=== PATIENT | female | born 1990 | race Caucasian/White ===

== ENCOUNTER 2018-08-23 12:24 | Outpatient (CLI) | payer MEDICAID ==
[2018-08-23] MEDS ORDERED: BETAMET ACET/BETAMET NA INJ 6 MG/1 ML IM ONE (12:32)
[2018-08-23] MEDS ORDERED: BETAMET ACET/BETAMET NA INJ 6 MG/1 ML ONE (12:36)
== END 2018-08-23 12:41 | disposition home or self-care (01) ==
LOC: LC 12:24
PROVIDERS: ATTEND Obstetrics & Gynecology
DX: Z34.90 Encounter for supervision of normal pregnancy, unspecified, unspecified trimester (principal)
CPT/HCPCS: 96372; J0702

== ENCOUNTER 2018-09-05 10:02 | Outpatient (CLI) | payer MEDICAID ==
[2018-09-05 11:31] LABS: AMORPHOUS SEDIMENT,URINE TRACE /HPF; APPEARANCE,URINE CLOUDY; BILIRUBIN,URINE NEGATIVE (NEGATIVE); CALCIUM OXALATE CRYSTALS,URINE MODERATE /HPF; COLOR,URINE YELLOW; GLUCOSE, URINE NEGATIVE (NEGATIVE); KETONES,URINE NEGATIVE (NEGATIVE); LEUKOCYTE ESTERASE,URINE NEGATIVE (NEGATIVE); NITRITE,URINE NEGATIVE (NEGATIVE); PROTEIN,URINE NEGATIVE (NEGATIVE); URINE SPECIFIC GRAVITY 1.015; UROBILINOGEN,URINE NEGATIVE mg/dL (<2.0)
[2018-09-05 11:41] LABS: URINE AMPHETAMINES SCREEN NEGATIVE; URINE BARBITURATES SCREEN NEGATIVE; URINE BENZODIAZEPINES SCREEN NEGATIVE; URINE COCAINE SCREEN NEGATIVE; URINE MARIJUANA (THC) SCREEN NEGATIVE; URINE METHADONE SCREEN NEGATIVE; URINE PHENCYCLIDINE SCREEN NEGATIVE
--- NOTE | 2018-09-05 15:03 | Non Stress Test Report ---
Non Stress Test Datetime Report Generated by CPN: 09/05/2018 15:03 DEMOGRAPHIC EGA NST: 32.5 INDICATION Indication for Study: Ordered by Provider MONITORING Monitor Explained: Monitor Explained; Test Explained; Patient Verbalized Understanding Time on Monitor: 09/05/2018 10:18 Time off Monitor: 09/05/2018 13:06 NST Duration: 168 NST INTERVENTIONS NST Interventions: None Physician Notified NST: A Cohen CNM BABY A: [id number] BABY A Movement : Present Contraction Frequency : 0 FHR Baseline : 125 Accelerations : 15X15 Decelerations : None Variability : Moderate 6-25bpm NST Review: Meets Criteria for Reactive NST NST Review and Verified By : Chelita Camp RNC NST Results: Reactive NST REPORT Report Trigger: Send Report
== END 2018-09-05 14:15 | disposition home or self-care (01) ==
LOC: LC 10:02
PROVIDERS: ATTEND Obstetrics & Gynecology
PROC: 4A1HXCZ Monitoring of Products of Conception, Cardiac Rate, External Approach (ICD-10-PCS; principal; 2018-09-05)
DX: O47.03 False labor before 37 completed weeks of gestation, third trimester (principal); Z3A.32 32 weeks gestation of pregnancy
CPT/HCPCS: 80307; 81001; 82731

== ENCOUNTER 2018-09-07 10:08 | Outpatient (CLI) | payer MEDICAID ==
[2018-09-07 10:51] LABS: APPEARANCE,URINE SLIGHTLY-CLOUDY; BILIRUBIN,URINE NEGATIVE (NEGATIVE); COLOR,URINE YELLOW; GLUCOSE, URINE NEGATIVE (NEGATIVE); KETONES,URINE NEGATIVE (NEGATIVE); LEUKOCYTE ESTERASE,URINE TRACE (NEGATIVE); NITRITE,URINE NEGATIVE (NEGATIVE); PROTEIN,URINE NEGATIVE (NEGATIVE); UROBILINOGEN,URINE NEGATIVE mg/dL (<2.0)
[2018-09-07 11:18] LABS: UR PRO/CREAT RATIO RESULT 0.3 mg/mg (0.0-0.2); URINE CREATININE 73.3 mg/dL (16-327); URINE PROTEIN 18.7 mg/dL (<12)
[2018-09-07 11:19] LABS: URINE AMPHETAMINES SCREEN NEGATIVE; URINE BARBITURATES SCREEN NEGATIVE; URINE BENZODIAZEPINES SCREEN NEGATIVE; URINE COCAINE SCREEN NEGATIVE; URINE MARIJUANA (THC) SCREEN NEGATIVE; URINE METHADONE SCREEN NEGATIVE; URINE PHENCYCLIDINE SCREEN NEGATIVE
[2018-09-07 11:28] LABS: ABSOLUTE EOSINOPHILS # (AUTO) 0.1 10^3/uL (0.0-0.6); ABSOLUTE LYMPHOCYTES (AUTO) 1.4 10^3/uL (0.5-4.7); ABSOLUTE MONOCYTES (AUTO) 0.7 10^3/uL (0.1-1.4); ABSOLUTE NEUT (AUTO) 8.3 10^3/uL (1.7-8.2); BASOPHILS % (AUTO) 0.2 % (0-2); EOSINOPHILS % (AUTO) 0.7 % (0-6); HEMATOCRIT 34.8 % (36.0-47.0); HEMOGLOBIN 11.9 g/dL (12.0-15.5); LYMPHOCYTES % (AUTO) 13.8 % (13-45); MEAN CORPUSCULAR HEMOGLOBIN 26.5 pg (27.0-33.4); MEAN CORPUSCULAR HGB CONC 34.1 g/dL (32.0-36.0); MEAN CORPUSCULAR VOLUME 78 fl (80-97); MONOCYTES % (AUTO) 6.3 % (3-13); PLATELET COUNT 207 10^3/uL (150-450); RED BLOOD COUNT 4.48 10^6/uL (3.72-5.28); RED CELL DISTRIBUTION WIDTH 13.5 % (11.5-14.0); TOTAL CELLS COUNTED % (AUTO) 100 %; WHITE BLOOD COUNT 10.5 10^3/uL (4.0-10.5)
[2018-09-07 11:47] LABS: ALANINE AMINOTRANSFERASE 15 U/L (9-52); ALBUMIN 2.9 g/dL (3.5-5.0); ALKALINE PHOSPHATASE 91 U/L (38-126); ANION GAP 8 (5-19); ASPARTATE AMINO TRANSFERASE 12 U/L (14-36); BILIRUBIN,DIRECT 0.1 mg/dL (0.0-0.4); BILIRUBIN,TOTAL 0.4 mg/dL (0.2-1.3); BLOOD UREA NITROGEN 6 mg/dL (7-20); CALCIUM 9.3 mg/dL (8.4-10.2); CARBON DIOXIDE 25 mmol/L (22-30); CHLORIDE 106 mmol/L (98-107); GLUCOSE 112 mg/dL (75-110); POTASSIUM 4.7 mmol/L (3.6-5.0); SODIUM 139.4 mmol/L (137-145); TOTAL PROTEIN 5.6 g/dL (6.3-8.2); URIC ACID 4.6 mg/dL (2.5-6.2)
--- NOTE | 2018-09-07 13:03 | Non Stress Test Report ---
Non Stress Test Datetime Report Generated by CPN: 09/07/2018 13:03 DEMOGRAPHIC EGA NST: 33.0 INDICATION Indication for Study: Ordered by Provider Indication for Study (NST) Other: pre e work up VITAL SIGNS Temperature - NST: 97.1 Pulse - NST: 66 RESP - NST: 16 NBPSYS NST: 116 NBPDIA NST: 62 MONITORING Monitor Explained: Monitor Explained; Test Explained; Patient Verbalized Understanding Time on Monitor: 09/07/2018 11:22 Time off Monitor: 09/07/2018 11:42 NST Duration: 20 NST INTERVENTIONS NST Interventions: PO Hydration Physician Notified NST: K. Jenkins, CNM BABY A: [id number] BABY A Movement : Present Contraction Frequency : rare FHR Baseline : 135 Accelerations : 15X15 Decelerations : None Variability : Moderate 6-25bpm NST Review: Meets Criteria for Reactive NST NST Review and Verified By : BETSY SCANLON RN NST Results: Reactive NST REPORT Report Trigger: Send Report
== END 2018-09-07 12:45 | disposition home or self-care (01) ==
LOC: LC 10:08
PROVIDERS: ATTEND Obstetrics & Gynecology
PROC: 4A1HXCZ Monitoring of Products of Conception, Cardiac Rate, External Approach (ICD-10-PCS; principal; 2018-09-07)
DX: O14.93 Unspecified pre-eclampsia, third trimester (principal); Z3A.33 33 weeks gestation of pregnancy
CPT/HCPCS: 36415; 59025; 80053; 80307; 81001; 82570; 83615; 84156; 84550; 85025

== ENCOUNTER 2018-09-09 09:49 | Outpatient (CLI) | payer MEDICAID ==
[2018-09-09 10:50] LABS: 24 HOUR URINE PROTEIN RESULT 80 mg/day (42-225); URINE PROTEIN 7.3 mg/dL (<12)
== END 2018-09-09 10:50 | disposition home or self-care (01) ==
LOC: LC 09:49
PROVIDERS: ATTEND Obstetrics & Gynecology
PROC: 4A1HXCZ Monitoring of Products of Conception, Cardiac Rate, External Approach (ICD-10-PCS; principal; 2018-09-09)
DX: O14.93 Unspecified pre-eclampsia, third trimester (principal); Z3A.33 33 weeks gestation of pregnancy
CPT/HCPCS: 59025; 84156

== ENCOUNTER 2018-09-15 09:49 | Outpatient (CLI) | payer MEDICAID ==
--- NOTE | 2018-09-15 11:17 | Non Stress Test Report ---
Non Stress Test Datetime Report Generated by CPN: 09/15/2018 11:16 DEMOGRAPHIC EGA NST: 34.1 EGA NST: 33.2 INDICATION Indication for Study: Ordered by Provider Indication for Study: Ordered by Provider VITAL SIGNS Temperature - NST: 97.8 Pulse - NST: 86 RESP - NST: 20 NBPSYS NST: 121 NBPDIA NST: 70 MONITORING Monitor Explained: Monitor Explained; Test Explained; Patient Verbalized Understanding Monitor Explained: Monitor Explained; Test Explained; Patient Verbalized Understanding Time on Monitor: 09/15/2018 10:18 Time on Monitor: 09/09/2018 10:00 Time off Monitor: 09/15/2018 11:03 Time off Monitor: 09/09/2018 10:39 NST Duration: 45 NST Duration: 39 NST INTERVENTIONS NST Interventions: PO Hydration; Reposition Patient NST Interventions: Reposition Patient Physician Notified NST: Cem Cohen CNM Physician Notified NST: Cem Cohen CNM BABY A: [id number] BABY A Movement : Present Movement : Present Contraction Frequency : denies Contraction Frequency : irr FHR Baseline : 135 FHR Baseline : 125 Accelerations : 15X15 Accelerations : 15X15 Decelerations : None Decelerations : None Variability : Moderate 6-25bpm Variability : Moderate 6-25bpm NST Review: Meets Criteria for Reactive NST NST Review: Meets Criteria for Reactive NST NST Review and Verified By : Chelita Beckford C NST Review and Verified By : Marisa Alexander RN NST Results: Reactive NST Results: Reactive NST REPORT Report Trigger: Send Report
== END 2018-09-15 11:07 | disposition home or self-care (01) ==
LOC: LC 09:49
PROVIDERS: ATTEND Obstetrics & Gynecology
PROC: 4A1HXCZ Monitoring of Products of Conception, Cardiac Rate, External Approach (ICD-10-PCS; principal; 2018-09-15)
DX: Z34.93 Encounter for supervision of normal pregnancy, unspecified, third trimester (principal)
CPT/HCPCS: 59025

== ENCOUNTER 2018-09-16 09:37 | Outpatient (CLI) | payer MEDICAID ==
[2018-09-16 10:24] LABS: APPEARANCE,URINE CLOUDY; BILIRUBIN,URINE NEGATIVE (NEGATIVE); COLOR,URINE YELLOW; GLUCOSE, URINE NEGATIVE (NEGATIVE); KETONES,URINE NEGATIVE (NEGATIVE); LEUKOCYTE ESTERASE,URINE NEGATIVE (NEGATIVE); NITRITE,URINE NEGATIVE (NEGATIVE); PROTEIN,URINE 100 mg/dL (NEGATIVE); URINE SPECIFIC GRAVITY 1.011; UROBILINOGEN,URINE NEGATIVE mg/dL (<2.0)
[2018-09-16 11:05] LABS: URINE AMPHETAMINES SCREEN NEGATIVE; URINE BARBITURATES SCREEN NEGATIVE; URINE BENZODIAZEPINES SCREEN NEGATIVE; URINE COCAINE SCREEN NEGATIVE; URINE MARIJUANA (THC) SCREEN NEGATIVE; URINE METHADONE SCREEN NEGATIVE; URINE PHENCYCLIDINE SCREEN NEGATIVE
--- NOTE | 2018-09-16 12:55 | PDOC TRANSFER SUMMARY ---
General Admission Date: 09/16/18 Transfer Date: 09/16/18 [facility] Accepting Physician: Dr. Weavre - Transfer Diagnosis (1) Is this a current diagnosis for this admission?: Yes (2) Premature rupture of membranes Is this a current diagnosis for this admission?: Yes (3) anomaly Is this a current diagnosis for this admission?: Yes - Transfer Medications Home Medications: Pnv No.95/Ferrous Fum/Folic AC [ Vitamin Tablet] 1 each PO DAILY - Allergies Allergies/Adverse Reactions: No Known Allergies Allergy (Verified 09/16/18 09:53) Hospital Course Hospital Course: present with c/o PPROM at 9:15 this am. Pt is a G1 @ 34 2/7 wk with known anomalies including downs syndrome and pneumothorax previoulsy drained in utereo. plan with MFM was orginally for pt to deisy at a tertiary care facility due to need for higher level interventions based on condition. Physical Exam Vital Signs: Intake & Output 09/15/18 09/16/18 09/17/18 06:59 06:59 06:59 Weight 123.2 kg General appearance: PRESENT: no acute distress, cooperative - rupture of membranes evident Results Laboratory Results: 09/16/18 09:45 Urine Color YELLOW Urine Appearance CLOUDY Urine pH 7.0 Ur Specific [place] 1.011 Urine Protein 100 H Urine Glucose (UA) NEGATIVE Urine Ketones NEGATIVE Urine Blood LARGE H Urine Nitrite NEGATIVE Ur Leukocyte Esterase NEGATIVE Urine WBC (Auto) 7 Urine RBC (Auto) >182 Plan Discharge Plan: transfewr of patient to [facility] for planned delivery for higher level interventions on the behalf of fetus with cardiopulmonary anomalies. Dr. Weaver accepting. patient understands need for transfuer. she is not marie and fetus status on NST is reassuring. Time Spent: Greater than 30 Minutes
--- NOTE | 2018-09-16 13:58 | Non Stress Test Report ---
Non Stress Test Datetime Report Generated by CPN: 09/16/2018 13:57 DEMOGRAPHIC EGA NST: 34.2 INDICATION Indication for Study: Pyelonephritis; Ordered by Provider; Other Indication for Study (NST) Other: DOWNS SYNDROME; PPROM; 2 VESSEL CORD; PLEURAL EFFUSION MONITORING Monitor Explained: Monitor Explained; Test Explained; Patient Verbalized Understanding Time on Monitor: 09/16/2018 10:09 Time off Monitor: 09/16/2018 12:52 NST Duration: 163 NST INTERVENTIONS Physician Notified NST: P CASTRO, CNM BABY A: [id number] BABY A Movement : Present Contraction Frequency : OCC FHR Baseline : 135 Accelerations : NONE Variability : Moderate 6-25bpm NST Review: Does Not Meet Criteria for Reactive NST NST Review and Verified By : D Bellavance RN NST Results: Non-Reactive NST COMMENTS NST Comments: providers aware of nonreactive nst NST REPORT Report Trigger: Send Report
== END 2018-09-16 13:01 | disposition short-term general hospital (02) ==
LOC: LC 09:37
PROVIDERS: ATTEND Obstetrics & Gynecology
PROC: 4A1HXCZ Monitoring of Products of Conception, Cardiac Rate, External Approach (ICD-10-PCS; principal; 2018-09-16)
DX: Z34.93 Encounter for supervision of normal pregnancy, unspecified, third trimester (principal)
CPT/HCPCS: 59025; 80307; 81001; 84112